=== PATIENT | female | born 2005 | race Caucasian/White ===

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

== ENCOUNTER 2025-05-26 08:47 | Outpatient (CLI) | payer BC, SELFPAY ==
--- NOTE | ~2025-05-26 | CT_ITS ---
EXAM/PROCEDURE: CT abdomen pelvis wo con HISTORY: microscopic hematuria, hx UTI's, generalized back pain COMPARISON: None available. TECHNIQUE: Noncontrast CT of the abdomen and pelvis. FINDINGS: No hydroureteronephrosis. No urolithiasis seen. Urinary bladder is unopacified and minimally distended but no gross acute process seen. The bowel gas pattern is nonobstructive with no free air or pneumatosis seen. Small amount of free fluid in the lower pelvis may be physiologic. Moderate amount of stool extends to the cecum. Retroverted uterus and adnexal regions unremarkable. Normal size appendix aorta and gallbladder. Liver pancreas spleen adrenal glands and stomach unremarkable for technique. Lung bases clear. Bones intact. IMPRESSION: Directed noncontrast CT of the abdomen and pelvis demonstrating no focal abnormality to explain source of patient's symptoms. Reviewed, dictated and finalized at location A. NOLOGY ARCHITECT IMPRESSION: Directed noncontrast CT of the abdomen and pelvis demonstrating no focal abnorm ality to explain source of patient's symptoms.
== END 2025-05-26 08:48 | disposition home or self-care (01) ==
LOC: MICIMG 08:48
PROVIDERS: PCP Physician Assistant Medical; Visit Provider Nurse Practitioner Adult Health
DX: R31.29 Other microscopic hematuria (principal)
CPT/HCPCS: 74176